=== PATIENT | male | born 1950 | race Caucasian/White ===

== ENCOUNTER → 2022-09-29 | Outpatient (CLI) | payer OTHER | END | disposition home or self-care (01) | LOC: RAH 12:34 | PROVIDERS: ATTEND Family Medicine Sports Medicine | DX: I08.1 Rheumatic disorders of both mitral and tricuspid valves (principal); R01.1 Cardiac murmur, unspecified | CPT/HCPCS: 93306 ==

== ENCOUNTER → 2024-04-29 | Outpatient (CLI) | payer OTHER ==
--- NOTE | 2024-04-29 10:32 | HMCIMG ---
US PELVIC NON-OB COMP HISTORY: Prostate COMPARISON: None TECHNIQUE: Pelvic ultrasound study was performed. FINDINGS: Bladder is moderately distended. Prevoid bladder volume is 188 cc. Postvoid bladder volume is 36 cc. Bladder wall measures 3 mm. Prostate gland measures 4.7 x 3.3 x 4.6 cm with total volume of 37.3 cc. IMPRESSION: 1. Small amount of post void residual is seen. Prostate gland is borderline enlarged.
== END | disposition home or self-care (01) ==
LOC: RAH 09:15
PROVIDERS: ATTEND Family Medicine
DX: N32.89 Other specified disorders of bladder (principal); R97.20 Elevated prostate specific antigen [PSA]
CPT/HCPCS: 76856